=== PATIENT | female | born 1960 | race American Indian/Alaskan Native ===

== ENCOUNTER 2020-07-17 09:30 | Day surgery (SDC) | payer BC ==
[~2020-07-17 09:30] MED LIST: SODIUM CHLORIDE 0.9% 1000 ML 1,000 ML IV SCH
--- NOTE | 2020-07-17 10:31 | Anesthesia Day of Surgery ---
Anesthesia Day of Surgery - Day of Surgery Patient Examined: Yes Patient H&P Reviewed: Yes Patient is NPO: Yes
--- NOTE | 2020-07-17 10:33 | Anesthesia Consultation ---
Anesthesia Consult and Med Hx Date of service: 07/17/20 - Airway Anesthetic Teeth Evaluation: Good ROM Head & Neck: Adequate Mental/Hyoid Distance: Adequate Mallampati Class: Class II Intubation Access Assessment: Good - Pre-Operative Health Status ASA Pre-Surgery Classification: ASA2 Proposed Anesthetic Plan: MAC - Pulmonary Hx Smoking: No - Cardiovascular System Hx Hypertension: Yes - Gastrointestinal Hx Gastroesophageal Reflux Disease: Yes - Other Systems Hx Obesity: No
[2020-07-17] MEDS ORDERED: propofoL 200 MG/20 ML VIAL IV ONE (10:44)
--- NOTE | 2020-07-17 11:10 | Short Stay Summary ---
Short Stay Documentation Date of service: 07/17/20 - History H&P: obtained from office - Allergies and Medications Current Medications: Allergies No Known Allergies Allergy (Unverified 07/16/20 10:40) Home Medications Medication Instructions Recorded Confirmed Last Taken Type Lisinopril 20 mg PO DAILY 07/17/20 07/17/20 07/16/20 09:00 History Omeprazole 40 mg PO DAILY 07/17/20 07/17/20 07/15/20 09:00 History Active Medications Sodium Chloride (Nacl 0.9% 1000 Ml) 1,000 mls @ 50 mls/hr IV DIRECT ANGUS Last Admin: 07/17/20 10:35 Dose: 50 mls/hr Documented by: - Brief post op/procedure progress note Date of procedure: 07/17/20 Findings: see dictation Estimated blood loss: none Pathology: none Condition: stable - Disposition Condition at discharge: Good - Discharge Diagnoses (1) Colon cancer screening Status: Acute Short Stay Discharge Plan Activity: other (No driving for 24 hours.) Weight Bearing Status: Full Weight Bearing Diet: regular Follow up with: PRIMARY MD JUDY [Primary Care Provider] - 7 Days
--- NOTE | 2020-07-17 11:12 | Operative Report ---
Operative Report Operative Report: Date of procedure: 07/17/2020 Preprocedure diagnosis: Colon cancer screening. No prior studies. Average risk profile. Post procedure diagnosis: Internal hemorrhoids, otherwise normal study. Procedure: Colonoscopy to the cecum Endoscopist: Dr. Swanson Anesthesia: Monitored anesthesia care per anesthesia department Estimated blood loss: 0 Medications: Monitored anesthesia care. See separate report by anesthesia for details. After careful discussion of the nature and purpose of the procedure as well as details of the technique risks benefits and alternatives the patient gave consent. Please see recent history and physical from the office. The patient was placed in the left lateral decubitus position and medicated per anesthesia. A rectal exam was performed sphincter tone was normal there were no masses palpable. The Volven 570 scope was passed transanally and advanced under continuous direct vision without difficulty to the cecum. The colon was well prepared. The cecum was normal. The ascending colon was normal and on forward and retroflexed views. The transverse colon, descending colon, and sigmoid colon were normal. The rectum revealed small internal hemorrhoids on retroflexed view but was otherwise normal. The procedure was well-tolerated overall and the patient was observed in recovery. Conclusions: Internal hemorrhoids, otherwise normal colonoscopy to the cecum. Plan: Repeat colonoscopy in 10 years, sooner if clinically indicated. Signed electronically: Kev Swanson M.D.
[2020-07-17] MEDS ORDERED: WATER FOR IRRIG STERILE 250 ML BOTTLE IR ONE (11:21)
[2020-07-17] MEDS ORDERED: WATER FOR IRRIG STERILE 1,000 ML BOTTLE ONE (11:22)
[2020-07-17 11:29] VITALS: BP 130/73
[2020-07-17] MEDS ORDERED: LIDOCAINE MPF (2%) 20 MG/1 ML VIAL 5 ML ONE (11:30)
--- NOTE | 2020-07-17 14:04 | Post Anesthesia Evaluation ---
- Post Anesthesia Evaluation Patient Participated: Yes Airway Patent: Yes Stable Respiratory Function: Yes Nausea/Vomiting: No Temp > 96.8F: Yes Pain Manageable: Yes Adequeate Hydration: Yes Anesthesia Complications: No Block Receding Appropriately: Not Applicable Patient on Ventilator: No
== END 2020-07-17 09:31 | disposition home or self-care (01) ==
LOC: GIO 09:30
PROVIDERS: ATTEND Internal Medicine Gastroenterology
DX: Z12.11 Encounter for screening for malignant neoplasm of colon (principal); K64.8 Other hemorrhoids; I10 Essential (primary) hypertension; K21.9 Gastro-esophageal reflux disease without esophagitis; Z79.899 Other long term (current) drug therapy
CPT/HCPCS: 45378; J2704; J7030